=== PATIENT | female | born 1995 | race Caucasian/White ===

== ENCOUNTER 2020-02-01 22:54 | Emergency (ER) | payer SELFPAY ==
[~2020-02-01] VITALS: Ht 162.6 cm; Wt 81.6 kg
[2020-02-01 23:03] VITALS: BP 121/75
--- NOTE | 2020-02-01 23:05 | NUR ---
PT PROVIED UA SAMPLE. PT AMBULATED TO BED 5 WITH STEADY GAIT. NEGATIVE COVID SCREEN.
--- NOTE | 2020-02-01 23:10 | NUR ---
PT PLACED IN GOWN. SAFETY MEASURES IN PLACE. WILL CONTINUE TO MONITOR.
--- NOTE | 2020-02-01 23:25 | NUR ---
ULSTRASOUND AT BEDSIDE.
--- NOTE | 2020-02-01 23:25 | NUR ---
DR. JORDAN AT BEDSIDE EVALUATING PT
[2020-02-01 23:48] LABS: BASOPHILS % (AUTO) 0.4 % (0.0-2.0); EOSINOPHILS # (AUTO) 0.2 K/uL (0-0.4); EOSINOPHILS % (AUTO) 1.6 % (0.0-4.0); HEMATOCRIT 36.9 % (36-48); HEMOGLOBIN 12.1 g/dL (12.0-16.0); LYMPHOCYTES # (AUTO) 1.3 K/uL (2.5-16.5); LYMPHOCYTES % (AUTO) 13.3 % (20.5-51.1); MEAN CORPUSCULAR HEMOGLOBIN 28 pg (27-31); MEAN CORPUSCULAR HGB CONC 33 g/dL (33-37); MEAN CORPUSCULAR VOLUME 85.6 fL (80-94); MONOCYTES # (AUTO) 0.5 K/uL (0.8-1.0); MONOCYTES % (AUTO) 5.3 % (1.7-9.3); NEUTROPHILS # (AUTO) 7.8 K/uL (1.8-7.7); NEUTROPHILS % (AUTO) 79.4 % (42.2-75.2); PLATELET COUNT (AUTO) 264 K/uL (140-450); RED BLOOD CELL COUNT(AUTO) 4.31 MIL/uL (4.20-5.40); RED CELL DISTRIBUTION WIDTH 14.5 % (11.6-13.7); WHITE BLOOD COUNT (AUTO) 9.8 K/uL (4.8-10.8)
[2020-02-01 23:55] LABS: APPEARANCE,URINE CLEAR (CLEAR); BILIRUBIN,URINE NEGATIVE (NEGATIVE); BLOOD, URINE NEGATIVE (NEGATIVE); COLOR,URINE YELLOW (YELLOW); LEUKOCYTE ESTERASE ,URINE 2+ (NEGATIVE); NITRITE, URINE NEGATIVE (NEGATIVE); UGLUCOSE NEGATIVE (NEGATIVE)
[2020-02-02 00:01] LABS: ANION GAP 11.8 (8-16); CARBON DIOXIDE 26.1 mmol/L (21-32); CREATININE 0.7 mg/dL (0.6-1.3); POTASSIUM 3.9 mmol/L (3.5-5.1)
[2020-02-02 00:32] LABS: RBC,URINE 0-5 /HPF (0-5)
--- NOTE | 2020-02-02 00:59 | NUR ---
PT INFORMED PRIMARY RN OF EPISODE OF VOMITTING X30 MINS AGO WHILE IN RESTROOM. ERMD NOTIFIED. NO NEW ORDERS RECEIVED AT THIS TIME.
[2020-02-02 01:00] VITALS: BP 122/68
--- NOTE | 2020-02-02 01:05 | NUR ---
PT REPORTS DECREASE IN PAIN, 5/10 CURRENTLY
--- NOTE | 2020-02-02 01:09 | NUR ---
Patient discharged with v/s stable. Written and verbal after care instructions given and explained. Patient alert, oriented and verbalized understanding of instructions. Ambulatory with steady gait. All questions addressed prior to discharge. ID band removed. Patient advised to follow up with PMD. Rx of TYLENOL AND MACROBID given. Patient educated on indication of medication including possible reaction and side effects. Opportunity to ask questions provided and answered.
== END 2020-02-02 01:09 | disposition home or self-care (01) ==
LOC: MED 22:54
DX: O26.851 Spotting complicating pregnancy, first trimester (principal); O23.40 Unspecified infection of urinary tract in pregnancy, unspecified trimester; O26.91 Pregnancy related conditions, unspecified, first trimester; R03.0 Elevated blood-pressure reading, without diagnosis of hypertension
CPT/HCPCS: 36415; 76801; 80048; 81001; 81025; 84702; 85025; 86900; 86901; 87086; 99284; Q0092

== ENCOUNTER 2020-05-24 07:18 | Observation (INO) | payer SELFPAY ==
[~2020-05-24] VITALS: Ht 160 cm; Wt 88.0 kg
[2020-05-24] MEDS ORDERED: PRETAB PO (07:56)
== END 2020-05-24 08:30 | disposition home or self-care (01) ==
LOC: MLD 07:18
PROVIDERS: ADMIT Obstetrics & Gynecology; ATTEND Obstetrics & Gynecology
DX: O46.93 Antepartum hemorrhage, unspecified, third trimester (principal); Z3A.29 29 weeks gestation of pregnancy
CPT/HCPCS: G0378

== ENCOUNTER 2020-08-10 07:04 | Inpatient (IN) | payer OTHER, SELFPAY ==
[~2020-08-10] VITALS: Ht 160 cm; Wt 92.1 kg
[2020-08-10] MEDS: LACTATED RINGERS 1,000 ML IV SCH ×2 (01:11→09:00)
[~2020-08-10 07:04] MED LIST: PRETAB PO
[2020-08-10] MEDS ORDERED: CARBOPROST 250 MCG/ML AMP IM PRN (07:40)
[2020-08-10] MEDS ORDERED: MISOPROSTOL 25 MCG TAB VG PRN (07:40)
[2020-08-10] MEDS ORDERED: OXYTOCIN 20 UNITS in LACTATED RINGERS 1,000 ML IV SCH (07:40)
[2020-08-10] MEDS ORDERED: METHYLERGONOVINE 0.2 MG/ML AMP IM PRN (07:40)
[2020-08-10 08:22] LABS: BASOPHILS % (AUTO) 0.2 % (0.0-2.0); EOSINOPHILS # (AUTO) 0.1 K/uL (0-0.4); EOSINOPHILS % (AUTO) 1.3 % (0.0-4.0); HEMATOCRIT 27.5 % (36-48); HEMOGLOBIN 8.7 g/dL (12.0-16.0); LYMPHOCYTES # (AUTO) 1.9 K/uL (2.5-16.5); LYMPHOCYTES % (AUTO) 21.5 % (20.5-51.1); MEAN CORPUSCULAR HEMOGLOBIN 22 pg (27-31); MEAN CORPUSCULAR HGB CONC 32 g/dL (33-37); MEAN CORPUSCULAR VOLUME 69.1 fL (80-94); MONOCYTES # (AUTO) 0.5 K/uL (0.8-1.0); MONOCYTES % (AUTO) 6.2 % (1.7-9.3); NEUTROPHILS # (AUTO) 6.2 K/uL (1.8-7.7); NEUTROPHILS % (AUTO) 70.8 % (42.2-75.2); PLATELET COUNT (AUTO) 308 K/uL (140-450); RED BLOOD CELL COUNT(AUTO) 3.98 MIL/uL (4.20-5.40); RED CELL DISTRIBUTION WIDTH 15.9 % (11.6-13.7); WHITE BLOOD COUNT (AUTO) 8.8 K/uL (4.8-10.8)
--- NOTE | 2020-08-10 08:33 | NUR ---
PATIENT HAS BEEN SCREENED AND CATEGORIZED LOW NUTRITION RISK. PATIENT WILL BE SEEN WITHIN 7 DAYS OF ADMISSION. 08/16/[address]
[2020-08-10 08:34] LABS: APPEARANCE,URINE HAZY (CLEAR); BILIRUBIN,URINE NEGATIVE (NEGATIVE); BLOOD, URINE TRACE-I (NEGATIVE); COLOR,URINE YELLOW (YELLOW); LEUKOCYTE ESTERASE ,URINE 2+ (NEGATIVE); NITRITE, URINE NEGATIVE (NEGATIVE); UGLUCOSE NEGATIVE (NEGATIVE)
[2020-08-10 08:36] LABS: ALBUMIN 2.3 g/dL (3.4-5.0); ANION GAP 13.5 (8-16); CARBON DIOXIDE 23.3 mmol/L (21-32); CREATININE 0.6 mg/dL (0.6-1.3); POTASSIUM 3.8 mmol/L (3.5-5.1); TOTAL BILIRUBIN 0.3 mg/dL (0.0-1.0)
[2020-08-10 08:45] LABS: WBC,URINE 20-60 /HPF (0-5)
[2020-08-10 09:05] LABS: RBC,URINE 0-5 /HPF (0-5)
[2020-08-10] MEDS ORDERED: OXYTOCIN 20 UNITS/LR PREMIX 1,000 ML IV ONE (18:13)
[2020-08-10] MEDS ORDERED: PROMETHAZINE 25 MG/ML VIAL ONE (23:30)
[2020-08-10] MEDS ORDERED: PROMETHAZINE 25 MG/ML VIAL IVP PRN (23:30)
[2020-08-10] MEDS ORDERED: fentaNYL citrate 0.05 MG/ML VIAL ONE (23:30)
[2020-08-10] MEDS: fentaNYL citrate 0.05 MG/ML VIAL IVP PRN (23:36)
[2020-08-11] MEDS ORDERED: ROPIVACAINE 0.2%/NS PREMIX 200 ML EPI ONE ×2 (01:20→07:30)
[2020-08-11] MEDS ORDERED: LIDOCAINE/EPI MPF 2%1:200000 10 ML VIAL INJ ONE (05:11)
[2020-08-11] MEDS: fentaNYL citrate 0.05 MG/ML VIAL IVP PRN (05:51)
[2020-08-11] MEDS ORDERED: NALBUPHINE 10 MG/ML AMP IVP PRN (08:35)
[2020-08-11] MEDS ORDERED: PROMETHAZINE 25 MG/ML VIAL IVP PRN (08:35)
[2020-08-11] MEDS: LACTATED RINGERS 1,000 ML IV SCH (08:50)
[2020-08-11] MEDS ORDERED: IBUPROFEN 800 MG TAB PO PRN (16:00)
[2020-08-11] MEDS ORDERED: METHYLERGONOVINE 0.2 MG/ML AMP IM PRN (16:00)
[2020-08-11] MEDS ORDERED: TEMAZEPAM 15 MG CAP PO PRN (16:00)
[2020-08-11] MEDS ORDERED: OXYTOCIN 10 UNITS/ML VIAL IM PRN (16:00)
[2020-08-11] MEDS ORDERED: oxyCODONE/APAP 5/325 MG 1 TAB TAB PO PRN (16:00)
[2020-08-11] MEDS ORDERED: SODIUM PHOSPHATE 118 ML ENEM RC PRN (16:00)
[2020-08-11] MEDS ORDERED: BENZOCAINE/MENTHOL 20%-0.5% 60 GM CAN TP PRN (16:00)
[2020-08-11] MEDS ORDERED: METHYLERGONOVINE 0.2 MG TAB PO PRN (16:00)
[2020-08-11] MEDS ORDERED: ACETAMINOPHEN 325 MG TAB PO PRN (19:45)
[2020-08-11] MEDS ORDERED: ACETAMINOPHEN 325 MG TAB ONE (19:51)
[2020-08-11] MEDS ORDERED: DOCUSATE SOD/SENNA 50/8.6 MG 1 TAB PO SCH (21:00)
[2020-08-11] MEDS: HYDROcodone/APAP 5/325 MG 1 TAB TAB PO PRN (23:16)
[2020-08-12 06:03] LABS: HEMATOCRIT 23.4 % (36-48); HEMOGLOBIN 7.3 g/dL (12.0-16.0)
[2020-08-12] MEDS: HYDROcodone/APAP 5/325 MG 1 TAB TAB PO PRN (09:11)
[2020-08-13] MEDS ORDERED: FLU VACCINE QS2020-21 0.5 ML SYR IMVAC PRN (07:00)
== END 2020-08-13 12:40 | disposition home or self-care (01) | DRG 560 ==
LOC: MFCC 07:04 → EDBD 07:04 → MFCC 08-11 20:58
PROVIDERS: ADMIT Obstetrics & Gynecology; ATTEND Obstetrics & Gynecology
PROC: 10D07Z6 Extraction of Products of Conception, Vacuum, Via Natural or Artificial Opening (ICD-10-PCS; principal; 2020-08-11)
PROC: 3E0R3BZ Introduction of Anesthetic Agent into Spinal Canal, Percutaneous Approach (ICD-10-PCS; 2020-08-11)
PROC: 00HU33Z Insertion of Infusion Device into Spinal Canal, Percutaneous Approach (ICD-10-PCS; 2020-08-11)
PROC: 3E033VJ Introduction of Other Hormone into Peripheral Vein, Percutaneous Approach (ICD-10-PCS; 2020-08-11)
PROC: 3E0P7VZ Introduction of Hormone into Female Reproductive, Via Natural or Artificial Opening (ICD-10-PCS; 2020-08-11)
PROC: 0W8NXZZ Division of Female Perineum, External Approach (ICD-10-PCS; 2020-08-11)
DX: O48.0 Post-term pregnancy (principal); O24.429 Gestational diabetes mellitus in childbirth, unspecified control; E66.01 Morbid (severe) obesity due to excess calories; O41.03X0 Oligohydramnios, third trimester, not applicable or unspecified; Z3A.40 40 weeks gestation of pregnancy; Z37.9 Outcome of delivery, unspecified; Z20.828 Contact with and (suspected) exposure to other viral communicable diseases; O66.5 Attempted application of vacuum extractor and forceps; O99.214 Obesity complicating childbirth; Z37.0 Single live birth
CPT/HCPCS: 36415; 51702; 59200; 76815; 80053; 81001; 85018; 85025; 86592; 86886; 86900; 86901; 87086; J2001; J2550; J2590; J2795; J3010; J7120